=== PATIENT | female | born 1970 | race Caucasian/White ===

== ENCOUNTER 2017-12-18 17:31 | Emergency (ER) | payer BC, OTHER ==
--- NOTE | 2017-12-18 18:43 | RAD REPORT ---
EXAM DESCRIPTION: RAD -Hand Left 3 View - 12/18/2017 6:31 pm CLINICAL HISTORY: Left hand pain status post injury FINDINGS: Nondisplaced transverse fracture involves the mid fifth metacarpal. No dislocation is seen
--- NOTE | 2017-12-18 19:08 | EDPHYS ---
Physician Documentation [facility] Name: Estrellita Pillai Age: 47 yrs Sex: Female : 1970 Arrival Date: 12/18/2017 Time: 17:41 Bed 19 Private MD: ED Physician Cresencio Cox HPI: 12/18 18:45 This 47 yrs old Female presents to ER via Ambulatory with complaints of Hand cp Injury. 18:45 The patient or guardian reports injury, pain, swelling, tenderness. The complaints cp affect the left fourth and fifth metacarpal area. Context: The problem was sustained at a sports field or court, resulted from a crush injury, baseball pitching machine. Onset: The symptoms/episode began/occurred yesterday. Associated signs and symptoms: Pertinent negatives: cyanosis distally, decreased sensation distally. 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 - Social history:: Smoking status: Patient/guardian denies using tobacco. ROS: 18:48 Constitutional: Negative for body aches, chills, fever, poor PO intake. cp 18:48 Eyes: Negative for injury, pain, redness, and discharge. cp 18:48 ENT: Negative for ear pain, sore throat, difficulty swallowing, difficulty handling secretions. 18:48 Respiratory: Negative for cough, shortness of breath, wheezing. 18:48 Abdomen/GI: Negative for abdominal pain. 18:48 MS/extremity: Positive for injury or acute deformity, pain, swelling, tenderness, of the left hand. 18:48 Skin: Positive for abrasion(s), of the dorsum left hand, superficial, Negative for cellulitis. 18:48 Neuro: Negative for headache, numbness, tingling, weakness. 18:48 All other systems are negative. Exam: 18:52 Constitutional: The patient appears in no acute distress, alert, awake, well developed, cp well nourished. 18:52 Head/Face: Normocephalic, atraumatic. cp 18:52 Eyes: Periorbital structures: appear normal, Conjunctiva: normal, no exudate, no injection, Lids and lashes: appear normal, bilaterally. 18:52 ENT: External ear(s): are unremarkable, Nose: is normal, Mouth: is normal. 18:52 Neck: ROM/movement: is normal, is supple, without pain, no range of motions limitations, no nuchal rigidity. 18:52 Chest/axilla: Inspection: normal. 18:52 Cardiovascular: Rate: normal. 18:52 Respiratory: the patient does not display signs of respiratory distress, Respirations: normal, no use of accessory muscles, no retractions, no splinting, no tachypnea. 18:52 Abdomen/GI: Inspection: abdomen appears normal. 18:52 Musculoskeletal/extremity: Extremities: grossly normal except: noted in the left fourth and fifth metacarpal area: contusion, ecchymosis, pain, swelling, tenderness, Perfusion: the extremity is normally perfused throughout, Sensation intact. 18:52 Skin: injury, abrasion(s), very small abrasion noted, of the dorsum left hand. Vital Signs: 18:13 BP 134 / 77; Pulse 78; Resp 16; Temp 97.8; Pulse Ox 100% on R/A; Weight 52.16 kg; hb Height 5 ft. (152.40 cm); Pain 6/10; 19:37 BP 121 / 88; Pulse 78; Resp 16; Pulse Ox 100% on R/A; Pain 0/10; bs1 18:13 Body Mass Index 22.46 (52.16 kg, 152.40 cm) hb MDM: 18:16 Patient medically screened. cp 18:30 Differential diagnosis: dislocation, open fracture, closed fracture, tendonitis. cp 19:00 Data reviewed: vital signs, nurses notes, radiologic studies, plain films. cp 19:00 Test interpretation: by ED physician or midlevel provider: plain radiologic studies. cp Counseling: I had a detailed discussion with the patient and/or guardian regarding: the historical points, exam findings, and any diagnostic results supporting the discharge/admit diagnosis, radiology results, the need for outpatient follow up, a hand specialist, to return to the emergency department if symptoms worsen or persist or if there are any questions or concerns that arise at home. Response to treatment: the patient's symptoms have mildly improved after treatment. 12/18 18:14 Order name: Hand Left 3 View XRAY 12/18 18:47 Order name: Ulnar Gutter splint; Complete Time: 19:19 cp Administered Medications: No medications were administered Disposition: 12/18/17 19:07 Discharged to Home. Impression: Nondisplaced fracture of shaft of fifth metacarpal bone, left hand. - Condition is Stable. - Discharge Instructions: Hand Fracture, Metacarpals. - Prescriptions for Naprosyn 500 mg Oral Tablet - take 1 tablet by ORAL route 2 times per day take with food; 20 tablet. - Medication Reconciliation Form, Thank You Letter, Antibiotic Education, Prescription Opioid Use form. - Follow up: Ramón Musa MD; When: 2 - 3 days; Reason: Recheck today's complaints. - Problem is new. - Symptoms have improved. Addendum: 01/02/2018 19:55 Co-signature as Attending Physician, Cresencio Cox MD I agree with the assessment and k dr plan of care. Signatures: Dispatcher [employer] EDCA Cresencio Cox MD MD [facility] Jan Swift PA PA cp Brenna Melissa, RN RN Alice Saul RN RN bs1 Corrections: (The following items were deleted from the chart) 12/18 19:38 19:07 12/18/2017 19:07 Discharged to Home. Impression: Nondisplaced fracture of shaft bs1 of fifth metacarpal bone, left hand. Condition is Stable. Forms are Medication Reconciliation Form, Thank You Letter, Antibiotic Education, Prescription Opioid Use. Follow up: Ramón Musa; When: 2 - 3 days; Reason: Recheck today's complaints. Problem is new. Symptoms have improved. cp
--- NOTE | 2017-12-18 19:08 | ER ---
Nurse's Notes [facility] Name: Estrellita Pillai Age: 47 yrs Sex: Female : 1970 Arrival Date: 12/18/2017 Time: 17:41 Bed 19 Private MD: Diagnosis: Nondisplaced fracture of shaft of fifth metacarpal bone, left hand Presentation: 12/18 18:11 Presenting complaint: Patient states: Left hand pain 6/10 and swelling after smashing hb it in pitching machine yesterday. Transition of care: patient was not received from another setting of care. Onset of symptoms was December 17, 2017. Care prior to arrival: None. 18:11 Method Of Arrival: Ambulatory hb 18:11 Acuity: JADEN 4 hb 18:48 Initial Sepsis Screen: Does the patient meet any 2 criteria? No. Patient's initial em sepsis screen is negative. Does the patient have a suspected source of infection? No. Patient's initial sepsis screen is negative. Triage Assessment: 18:48 General: Appears in no apparent distress. comfortable, Behavior is calm, cooperative. em Injury Description: pitching machine hit left hand yesterday, swelling noted, limited ROM in hand. 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 - Social history:: Smoking status: Patient/guardian denies using tobacco. Screenin:47 Abuse screen: Denies threats or abuse. Nutritional screening: No deficits noted. em Tuberculosis screening: No symptoms or risk factors identified. Fall Risk None identified. Assessment: 18:44 General: Appears in no apparent distress. comfortable, Behavior is calm, cooperative. em Pain: Denies pain. Neuro: Level of Consciousness is awake, alert, obeys commands, Oriented to person, place, time, situation. Cardiovascular: Capillary refill < 3 seconds Patient's skin is warm and dry. Respiratory: Airway is patent Respiratory effort is even, unlabored, Respiratory pattern is regular, symmetrical. GI: Abdomen is flat. : No signs and/or symptoms were reported regarding the genitourinary system. EENT: No signs and/or symptoms were reported regarding the EENT system. Derm: Skin is intact, Skin is pink, warm \T\ dry. Musculoskeletal: Swelling present in left hand Reports pain in left hand was working on pitching machine when the spring hit hand. 19:00 Reassessment: Patient appears in no apparent distress at this time. I agree with the iw above assessment by Jose Wynn LVN. 19:05 Reassessment: No changes from previously documented assessment. Patient and/or family bs1 updated on plan of care and expected duration. Pain level reassessed. Patient is alert, oriented x 3, equal unlabored respirations, skin warm/dry/pink. Received report from PETER Garcia. 19:20 Reassessment: Neurovascular checks wnl after splint applied. bs1 Vital Signs: 18:13 BP 134 / 77; Pulse 78; Resp 16; Temp 97.8; Pulse Ox 100% on R/A; Weight 52.16 kg; hb Height 5 ft. (152.40 cm); Pain 6/10; 19:37 BP 121 / 88; Pulse 78; Resp 16; Pulse Ox 100% on R/A; Pain 0/10; bs1 18:13 Body Mass Index 22.46 (52.16 kg, 152.40 cm) hb ED Course: 17:41 Patient arrived in ED. al2 18:12 Triage completed. hb 18:13 Arm band placed on right wrist. hb 18:16 Jan Swift PA is PHCP. cp 18:16 Cresencio Cox MD is Attending Physician. cp 18:31 Hand Left 3 View XRAY In Process Unspecified. EDMS 18:44 Jose Wynn LVN is Primary Nurse. em 18:47 Patient has correct armband on for positive identification. Bed in low position. Call em light in reach. 18:47 No provider procedures requiring assistance completed. Patient did not have IV access em during this emergency room visit. 19:06 Ramón Musa MD is Referral Physician. cp Administered Medications: No medications were administered Outcome: 19:07 Discharge ordered by . cp 19:37 Discharged to home ambulatory. bs1 19:37 Condition: stable 19:37 Discharge instructions given to patient, Instructed on discharge instructions, follow up and referral plans. medication usage, Demonstrated understanding of instructions, follow-up care, medications, splint care, Prescriptions given X 1. 19:38 Patient left the ED. bs1 Signatures: Dispatcher [employer] EDJose Mcfadden, SHIFT SUPERINTENDENT CAUSTIC CRESYLATE SHIFT SUPERINTENDENT CAUSTIC CRESYLATE Danette Garcia, RN RN Jan Hadley PA PA cp Baxter, Heather, RN RN Alice Saul RN RN bs1 Zoila Guillen Corrections: (The following items were deleted from the chart) 18:46 18:44 Injury Description: Crush injury was sustained em em
== END 2017-12-18 19:38 | disposition home or self-care (01) ==
LOC: ER 17:31
DX: S62.357A Nondisplaced fracture of shaft of fifth metacarpal bone, left hand, initial encounter for closed fracture (principal); W23.0XXA Caught, crushed, jammed, or pinched between moving objects, initial encounter; Y93.79 Activity, other specified sports and athletics; Y92.9 Unspecified place or not applicable; Z88.2 Allergy status to sulfonamides
CPT/HCPCS: 99283